=== PATIENT | female | born 1945 | race Caucasian/White ===

== ENCOUNTER 2020-12-12 09:11 | Emergency (ER) | payer OTHER, MEDICARE ==
[~2020-12-12] VITALS: Ht 162.6 cm; Wt 103.0 kg
[~2020-12-12 09:11] MED LIST: ASPI-556 PO; ATOR40TA71 PO; CHLO500T3 PO; CYCL5TAB PO; FURO-151 PO; HYDR-4060 PO; LEVO5TAB13 PO; LISI20TA24 PO; METF-446 PO; OXYB5TAB15 PO; POTA10TA11 PO; PREG50 PO; [UNRECOGNIZED DRUG - OTHER] TP; bilberry PO; fluticasone nasal NASAL; osteobiflex PO; proair hfa IH; triamcinolone TP; vitamin b12 PO
[2020-12-12 09:14] VITALS: BP 112/77
[2020-12-12 11:25] LABS: BASOPHILS % (AUTO) 0.7 % (0.0-5.0); EOSINOPHILS % (AUTO) 6.5 % (0.0-8.0); HEMATOCRIT 34.5 % (36-48); MEAN CORPUSCULAR HEMOGLOBIN 25.4 pg (27.0-33.0); MEAN CORPUSCULAR HGB CONC 30.4 g/dL (32.0-36.0); MEAN CORPUSCULAR VOLUME 83.5 fL (79-99); NEUTROPHILS % (AUTO) 64.4 % (40.0-77.0); PLATELET COUNT (AUTO) 310 K/uL (130-400); RED BLOOD CELL COUNT(AUTO) 4.13 MIL/uL (4.00-5.50); RED CELL DISTRIBUTION WIDTH 14.9 % (11.0-15.5); WHITE BLOOD COUNT (AUTO) 8.3 K/uL (4.8-10.8)
[2020-12-12 11:32] LABS: CREATININE 1.1 mg/dL (0.5-1.5); POTASSIUM 4.4 mmol/L (3.5-5.1)
[2020-12-12 11:37] LABS: ALBUMIN 3.4 g/dL (3.5-5.0); BILIRUBIN,TOTAL 0.7 mg/dL (0.2-1.0); TOTAL PROTEIN, SERUM 7.1 g/dL (6.0-8.3)
[2020-12-12] MEDS ORDERED: HYDROCODONE/ACETAMINOPHEN 5/325 MG TAB PO STA (13:39)
[2020-12-12] MEDS ORDERED: HYDROCODONE/ACETAMINOPHEN 5/325 MG TAB ONE (13:41)
[2020-12-12] MEDS ORDERED: METH4TAB3 PO (14:19)
== END 2020-12-12 14:54 | disposition home or self-care (01) ==
LOC: EDH 09:11 → UNDOADMIN 13:00 → EDHIP 13:00 → EDH 14:54
DX: S90.32XA Contusion of left foot, initial encounter (principal); M25.571 Pain in right ankle and joints of right foot; R42 Dizziness and giddiness; I10 Essential (primary) hypertension; E11.9 Type 2 diabetes mellitus without complications; Z79.82 Long term (current) use of aspirin; Z79.899 Other long term (current) drug therapy; S90.122A Contusion of left lesser toe(s) without damage to nail, initial encounter; W18.39XA Other fall on same level, initial encounter; Y93.89 Activity, other specified; Y92.89 Other specified places as the place of occurrence of the external cause; Y99.8 Other external cause status
CPT/HCPCS: 36415; 73600; 73620; 80053; 84484; 85025; 93926